=== PATIENT | female | born 1970 | race Caucasian/White ===

== ENCOUNTER 2021-01-21 12:30 | Outpatient (RCR) | payer OTHER, SELFPAY ==
--- NOTE | 2020-12-22 09:34 | PTOPEVAL ---
INITIAL PHYSICAL THERAPY EVALUATION and PLAN OF CARE Thank you for referring Radha Tejada to [facility].? Radha is scheduled to be seen for physical therapy? 2x/week for 4 weeks. Please review, sign, date and return this plan of care CAROLYN. I agree with and certify that the following plan of care is medically necessary. Referring Physician Date Admitting Provider: Attending Provider: Iam Herron MD Referring Provider: *PT Outpatient Evaluation Start: 12/22/20 08:05 Freq: Status: Active Protocol: Document 12/22/20 08:00 CLAUDIA (Rec: 12/22/20 09:34 CLAUDIA [id number]) Therapy Assessment Status Assessment Status Assessment Status Evaluation Outpatient Past Medical History Past Medical History Source of Past Medical History Patient Musculoskeletal History Hx Arthritis Yes Hx Orthopedic Surgery Yes: R knee meniscal repair HEENT History Hx Tonsillectomy Yes Other History Hx Other Surgeries Yes: skin removal surgery Evaluation Information Problem Diagnosis bilat knee DJD, R knee flexion contracture Onset long standing - gradually worsening Subjective Information Gets cortisone shots Query Text:As Reported By Patient/ periodically - last one was 5/ Family - did well next 2 days - 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 Now - knee is back to how it was prior to most recent injection - but feels a little unstable . Pain now on R is more laterally - along thigh into lower leg. L knee is also arthritic -but not as bad as the R. Ortho MD wants her to keep moving, etc - to try and delay TKA surgery. Knee discomfort interferes with sleeping. In mornings takes awhile to get moving. Does stretching and bend knees prior to getting up. 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 Pain is worse in sitting Diagnostic Tests X-Rays For This Problem Yes Previous Treatments Previous Treatments For This Problem receives injections into both k
--- NOTE | 2021-01-21 15:05 | PTOPEVAL ---
PHYSICAL THERAPY DISCHARGE SUMMARY Thank you for referring Radha Tejada to [facility].? Radha has been seen x 8 visits in PT. Most goals have been met and her R patella appears in a more neutral position - but she was having increase in discomfort this date. She is to continue with HEP and use ice massage or ice packs to help with R knee pain that is retropatellar rather than lateral patellar. I agree with and certify that the following plan of care is medically necessary. Referring Physician Date Admitting Provider: Attending Provider: Iam Herron MD Referring Provider: Therapy Assessment Status Assessment Status Assessment Status Discharge Evaluation Information Problem Diagnosis bilat knee DJD, R knee flexion contracture Subjective Information Radha states that R knee Query Text:As Reported By Patient/ pain has returned - some Family posteriorly as well as under patella. Was able to reposition R knee with morning class - but still had R patellar twinges. Pain Assessment Self Report Pain Assessment Left Knee(s) Reported Pain Level 0 Lowest Pain Intensity 0 Greatest Pain Intensity 2 Right Knee(s) Reported Pain Level 4 Lowest Pain Intensity 1 Greatest Pain Intensity 6 Lower Extremity Range of Motion Knee Range of Motion Right Knee Extension Range of Motion - Active 10 Query Text: Left Knee Extension Range of Motion - Active 12 Query Text: Lower Extremity Muscle Strength Testing Hip Strength Bilateral Hip Strength Comments R abduction 4+/5 Muscle Length Testing Muscle Length Testing Claudia's Test Hip Muscle Length (R) WFL,(R) Mild Tightness,(L) Mild Tightness Palpation Assessment Palpation Palpation R knee good patellar mobility - medial/laterally - mild decrease with cranial/caudal glides R patella appears in more neutral position today Gait Assessment Gait Pattern Assessment Other Gait Observations mild lateral trunk lean still present with gait pattern PT Clinical Summary Clinical Summary Protocol: PTEVCODE PT Clinical Summary LE functional scale - 54/80 Radha overall progressed well in PT - she gained R hip abductor strength, R ITB flexibility, was achieving decrease in R knee pain, and did increase with functional abilities. No change with
== END 2021-03-01 10:10 | disposition home or self-care (01) ==
LOC: ANHHIPT 12:30
PROVIDERS: PCP Emergency Medicine; Visit Provider Orthopaedic Surgery
DX: M17.0 Bilateral primary osteoarthritis of knee (principal); M24.561 Contracture, right knee
CPT/HCPCS: 97110; 97140; 97161

== ENCOUNTER → 2021-10-17 08:13 | Outpatient (CLI) | payer BC, SELFPAY ==
--- NOTE | ~2021-10-17 | US_ITS ---
EXAMINATION: US pelvic complete w TV DATE: 10/17/2021 08:41 INDICATION: Ovarian cyst. Thickened endometrium. Comparison:No prior studies for comparison. TECHNIQUE: Multiple transabdominal and endovaginal sonographic images of the pelvis performed. FINDINGS: The uterus measures 9.6 x 5.4 x 5.7 cm. The endometrial complex measures 1.4 cm.. The right ovary measures 2.8 x 1.3 x 2.2 cm and the left ovary measures 2.2 x 1.5 x 2.7 cm. There ar e small follicles in each ovary. Normal doppler signal in both ovaries. There is trace free fluid in the pelvis. There are no abnormal masses seen on either side. IMPRESSION: 1. Mildly thickened endometrium measuring 1.4 cm. Reviewed, dictated and finalized at location B.
== END ==
PROVIDERS: PCP Physician Assistant; Visit Provider Physician Assistant
DX: N83.201 Unspecified ovarian cyst, right side (principal); N83.202 Unspecified ovarian cyst, left side; R93.89 Abnormal findings on diagnostic imaging of other specified body structures
CPT/HCPCS: 76830; 76856

== ENCOUNTER 2023-06-01 13:49 | Outpatient (CLI) | payer BC, SELFPAY ==
--- NOTE | 2023-06-01 14:34 | ECG_ITS ---
Measurements Intervals [place] Rate: 68 P: 30 WV: 127 QRS: -9 QRSD: 102 T: 17 QT: 399 QTc: 425 Interpretive Statements BASELINE ARTIFACT RESULTS IN POOR QUALITY ECG SINUS RHYTHM GROSSLY NORMAL ECG NO PREVIOUS ECG AVAILABLE FOR COMPARISON Electronically Signed On 06-01-2023 15:16:25 CDT by Alfonzo Ivy M.D.
[2023-06-01 15:07] LABS: Basophils Percent Auto 0.5 % (0.2-1.2); Eosinophils Absolute Auto 0.2 K/mm3 (0-0.3); Eosinophils Percent Auto 2.9 % (0-4.4); Hematocrit 46.6 % (37.0-47.0); Hemoglobin 15.3 g/dL (12.0-15.0); Immature Granulocyte Absolute 0.05 K/mm3 (0.00-0.031); Immature Granulocyte Percent A 0.7 % (0-0.5); Lymphocytes Absolute Auto 1.84 K/mm3 (0.9-3.2); Lymphocytes Percent Auto 25.1 % (18.3-44.2); Mean Corpuscular HGB Conc 32.8 g/dl (32-36); Mean Corpuscular Hemoglobin 28.4 pg (26-34); Mean Corpuscular Volume 86.5 fl (80-100); Mean Platelet Volume 9.4 fl (7.4-10.4); Monocytes Absolute Auto 0.6 K/mm3 (0.1-0.6); Monocytes Percent Auto 7.7 % (2.6-8.5); Neutrophils Absolute Auto 4.6 K/mm3 (1.3-6.7); Neutrophils Percent Auto 63.1 % (45.5-73.1); Platelet Count Result 248 k/mm3 (150-375); Red Blood Count 5.39 M/mm3 (4.2-5.4); Red Cell Distribution Width 13.7 % (11.5-14.5); White Blood Count 7.3 K/mm3 (4.5-10.0)
[2023-06-01 15:09] LABS: Albumin Level 4.5 g/dL (3.5-5.1); Anion Gap 6 mmol/L (8-16); Blood Urea Nitrogen 18 mg/dL (7-17); Carbon Dioxide 32 mmol/L (22-30); Chloride 99 mmol/L (98-107); Estimated Glomerular Filt Rate > 60; Glucose 89 mg/dL (65-110); Potassium 4.3 mmol/L (3.4-5.0); Sodium 137 mmol/L (137-145)
[2023-06-01 15:11] LABS: INR 0.9; Partial Thromboplastin Time 26.8 SECONDS (22.3-36.8); Prothrombin Time 12.6 Seconds (11.1-14.7)
[2023-06-01 15:18] LABS: Appearance Urine Clear (Clear); Bacteria Urine None Seen /hpf; Bilirubin Urine Negative (Negative); Blood Urine Negative (Negative); Color Urine Yellow (Yellow); Glucose Urine UA Negative (Negative); Ketones Urine Negative (Negative); Leukocyte Esterase Ur 1+ LEU/UL (Negative); Need Manual Microscopic Reviewed; Nitrate Urine Negative (Negative); Non Pathogenic Casts 0-2; Protein Urine Negative (Negative); RBC Urine 0-2 /hpf (0-2); Specific Grav Ur 1.009 (1.001-1.035); Squamous Epithelial Cell Urine None seen /hpf (Few); Urobilinogen Urine 0.2 mg/dL (<2.0); WBC Urine 0-5 /hpf
[2023-06-01 15:28] LABS: Add Urine Microscopic? YES
[2023-06-01 16:11] LABS: Urine Cotinine NEGATIVE
[2023-06-01 16:51] LABS: Hemoglobin A1C 4.9 % (<5.7)
== END 2023-06-01 13:50 | disposition home or self-care (01) ==
LOC: ANHSURGERY 13:55
PROVIDERS: PCP Nurse Practitioner Family; Visit Provider Orthopaedic Surgery
DX: M17.11 Unilateral primary osteoarthritis, right knee (principal); Z01.818 Encounter for other preprocedural examination
CPT/HCPCS: 80048; 80307; 81001; 82040; 83036; 85025; 85610; 85730; 86850; 86900; 86901; 87081; 93005

== ENCOUNTER 2023-06-13 02:33 | Day surgery (SDC) | payer BC, SELFPAY ==
[2023-06-01 14:00] VITALS: BMI 35.9
--- NOTE | 2023-06-01 14:21 | PC.NURSE ---
Report to the Outpatient Waiting Room, entrance under the green pavilion located off [facility], at time _0830 on date __06/13/23 . Planned Procedure Time: _1030 . Time changes happen often and if your time is changed the preop area will call you the afternoon before. - You and your visitor will be asked to self-screen and do not enter if you have any COVID symptoms. - A mask is optional within the hospital at this time. Patients may have clear liquids (water, carbonated beverages, clear teas, apple juice) until 3 hours prior to surgery with a maximum of 20 ounces. - No food from midnight until time of surgery - Infants may have breast milk until 4 hours before surgery, infant formula 6 hours prior to surgery. - Children will be allowed to drink immediately following surgery. If applicable, please bring a bottle or sippy cup to assist with drinking. Juice, water, soda, and popsicles are readily available. For infants on formula, please bring formula the day of surgery. Pacifiers are allowed. Take the following medications with a SIP of water the morning of surgery: ___BUPROPION DO NOT STOP ANY OF YOUR OTHER PRESCRIPTION MEDICATIONS PRIOR TO SURGERY ?EXCEPT THE FOLLOWING Medications to discontinue per physician ALL VITAMINS AND SUPPLEMENTS 3 DAYS PRE OP.LAST DOSE 06/09/23. MELOXICAM AND IBUPROFEN PER DR DE PAZ Please no make-up, nail vietnamese, hairspray, perfume, deodorant, or body powder the day of surgery. No jewelry (including any body piercings) or valuables the day of surgery, leave them at home. Please take a shower or bath the night before, or the morning of, surgery with an antibacterial soap. Wear comfortable, loose fitting clothing. Children are encouraged to wear pajamas. - Jewelry must be removed prior to entering the operating room. Rings and piercings that are not removed may be cut off. - The hospital will not accept responsibility for valuables. - Please leave all valuables, including medications, at home the day of surgery. If you are going home after surgery, a licensed fire truck driver must drive you home. - NO public transportation without another adult if you receive anesthesia. - We recommend that an adult stay with you for 24 hours following discharge. - We also recommend that you do not drive, make important decision, drink alcoholic beverages, or take any drugs that were not prescribed by your health care provider for at least 24 hours after your discharge time. For Pediatric surgeries, we recommend two adults accompany the child home. Follow any additional instructions given to you from your surgeon. If you or anyone in your household have experienced Covid symptoms in the past week, please notify your surgeon or the nurse liaison at the phone number below for possible testing. VERBAL AND WRITTEN instructions given to __PATIENT and asked if any additional questions and then verbalized understanding. Patient advised to call surgeon office or pre surgery nurse liaison [phone] if any additional questions.
[2023-06-01 14:36] VITALS: BP 139/89; PULSE 70; RESP 18; TEMP 36.8; O2SAT 99
[2023-06-13] VITALS (19 sets, daily range): BP systolic 128–182; BP diastolic 75–124; PULSE 56–104; RESP 12–17; TEMP 35.8–36.5; O2SAT 94–100
--- NOTE | ~2023-06-13 | XR_ITS ---
EXAMINATION: [id number] DATE: 06/13/2023 15:22 INDICATION: Postoperative evaluation following right total knee arthroplasty. TECHNIQUE: Anteroposterior and lateral views of the right knee were obtained. COMPARISON: None. FINDINGS: Right total knee arthroplasty without patellar resurfacing appears well seated and in near anatomic a lignment. No fractures identified. Anterior skin anjana and expected postoperative subcutaneous and intra-articular gas. IMPRESSION: 1. Right total knee arthroplasty, negative for postoperative purposes. Reviewed, dictated and finalized at location A. N OILSEED OR PASTURE GROWER
--- NOTE | 2023-06-13 08:12 | WPDHPUPDATE1 ---
History and Physical Update Update Date/Time: 06/13/23 08:12 History and Physical has been reviewed, including an updated exam of the patient. There are NO changes in the patient's condition. Risks, benefits, and alternatives have been discussed and questions answered. Patient agrees to proceed with procedure.
--- NOTE | 2023-06-13 10:53 | WPDANESEPPF ---
Anes - Initial Pre Proc Eval Procedure: Operation Date: 06/13/23 11:45 Proposed Procedures p Right Total Knee Arthroplasty, Cortisone Injection Left Knee - Iam Herron MD Date/Time: 06/13/23 10:53 Surgeon: Iam Herron MD Pre Op Diagnosis: Bilateral Knee's djd Patient Data Age: 52 Gender: F Height: 1.75 m Weight: 110.4 kg Last Vital Signs Temp 36.8 C 06/01/23 14:36 Pulse 70 06/01/23 14:36 Resp 18 06/01/23 14:36 BP 139/89 06/01/23 14:36 Pulse Ox 99 06/01/23 14:36 O2 Del Method Room Air 06/01/23 14:36 Allergies Allergy/AdvReac Type Severity Reaction Status Date / Time meperidine Allergy Severe Vomiting Verified 06/13/23 10:27 Home Medications Medication Instructions Recorded Confirmed Type meloxicam 15 mg tablet 15 mg PO DAILY pain/inflammation 04/20/23 06/13/23 Rx 30 days #30 tabs tramadol 50 mg tablet 50 mg PO PRN PRN Pain 04/26/23 06/13/23 History chlorhexidine gluconate 4 % 1 applic topical DAILY #237 mL 05/30/23 06/13/23 Rx topical liquid (Hibiclens) acetaminophen 500 mg capsule 500 - 1,000 mg PO Q6H PRN Pain 06/01/23 06/13/23 History bupropion HCl 300 mg 24 hr tablet, 300 mg PO DAILY 06/01/23 06/13/23 History extended release cholecalciferol (vitamin D3) 50 50 mcg PO DAILY 06/01/23 06/13/23 History mcg (2,000 unit) tablet ferrous sulfate 325 mg (65 mg 65 mg PO DAILY 06/01/23 06/13/23 History iron) capsule,extended release ibuprofen 800 mg tablet 800 mg PO Q6H PRN Pain 06/01/23 06/13/23 History linaclotide 72 mcg capsule 72 mcg PO DAILY 06/01/23 06/13/23 History (Linzess) Patient hx anesthesia problems: post op nausea/vomiting Family hx anesthesia problems: none Results Review: All pre-operative results and documents have been reviewed as part of the pre-operative evaluation. [facility] Past Medical History Medical History IT band syndrome Knee joint effusion Left knee DJD Right knee DJD Tricompartment degenerative joint disease of knee Family History Family History Mother Hypertension Father Family history of diabetes mellitus in first degree relative Other Family history of arthritis Family history of lung cancer Family history of pancreatic cancer No family history of diabetes mellitus Social History Social History Smoking status: Never smoker Additional smoking assessment comments: DENIES ANY FORM OF TOBACCO USE Alcohol intake: current Alcohol use details: 2 per month Living arrangements: with family Spiritual care concerns: No Anes - Eval Final PreProcedure Day of Procedure 06/13/23 10:53 Patient weight: obese Heart: regular rate and rhythm Lungs: clear to auscultation Airway: Mallampati scale class II Neurological: alert and oriented Last oral intake: >/= 8 hours ASA classification: III Emergent: no Anesthetic plan: proceed Anesthesia type and monitoring: general LMA and standard monitoring Results Review: All pre-operative results and documents have been reviewed as part of the pre-operative evaluation. Informed Consent: The patient's anesthetic plan and its attendant risks and benefits were discussed with the patient/family/POA. Questions were solicited and answers provided to the satisfaction of the patient/family/POA.
[2023-06-13] MEDS: ACETAMINOPHEN 500 MG TABLET 1000 MG PO ×2 (10:57→16:18)
[2023-06-13] MEDS: LACTATED RINGERS 1,000 ML 30 ML IV CONT ×2 (11:26→15:02)
[2023-06-13] MEDS: TRANEXAMIC ACID 1,000MG/ISO100 1,000 MG/100 ML BAG 200 MG IVPB (11:36)
[2023-06-13] MEDS: SCOPOLAMINE 1.5 MG PATCH TRANSDERM (11:36)
--- NOTE | 2023-06-13 12:16 | WPDANESPNB ---
Anes - Peripheral Nerve Block Date/Time: 06/13/23 12:16 I have discussed with the patient/family/POA the placement of a peripheral nerve block for post-operative pain management, including associated risks, benefits, complications, and side effects. Alternative methods of post-operative analgesia were detailed. Questions were solicited and answers provided to the satisfaction of the patient/family/POA. Time-Out: A pre-procedural Time-Out was completed immediately before starting the procedure and confirmed: Patient Identification, Site, Procedure, Patient Position and the Availability of Requisite Equipment. Clinical Indications: Acute post-operative pain management requested by the operative surgeon. Nerve Block Insertion Note Anes-nerve block: adductor canal right Patient position: supine Skin prep: chlorhexidine Needle: 22 gauge, stimulating, insulated echogenic needle. Needle length: 80 mm Technique: ultrasound Technique comment: mid2mg [id number] Injectate: bupivacaine 0.5% with epi 5 mcg/ml (30ml no epi) and dexamethasone (mg) (4) Observations: tolerated well Complications: none Procedure start time:: 1203 Procedure end time:: 1210
[2023-06-13] MEDS: ceFAZolin 2 GM/D5W 50 ML 2 GM/50 ML BAG IVPB ×2 (12:20→20:51)
[2023-06-13] MEDS: BUPivacaine HCL 0.5% 10 ML AMP 2 ML INFILTRATE (13:28)
[2023-06-13] MEDS: methylPREDNISolone ACETATE 80 MG/ML VIAL IM (13:29)
[2023-06-13] MEDS: TRANEXAMIC ACID 1,000 MG/10 ML AMPUL 1000 MG IV PUSH (14:32)
--- NOTE | 2023-06-13 15:07 | P.OP_ITS ---
Procedure Note - Detailed Date of Procedure 06/13/23 Pre-op Diagnosis Bilateral Knee djd Post-op Diagnosis Same Procedure Performed RIGHT TKA, LEFT KNEE INJECTION Surgeon Iam Herron MD Anesthesia General Description of Procedure THE RIGHT KNEE WAS PREPPED AND DRAPED IN THE STERILE FASHION. THERE WAS A 20 DEGREE FLEXION CONTRACTURE. A MIDLINE SKIN INCISION WAS MADE. A MEDIAL PARAPATELLAR ARTHROTOMY WAS MADE. THE PATELLA WAS EVERTED. THERE WAS TRICOMPARTMENT DJD. THERE WAS MINIMAL PATELLA DJD. AN INTRAMEDULLARY IVETH WAS PLACED IN THE FEMUR. A DISTAL FEMORAL CUT WAS MADE IN 5 DEGREES OF VALGUS REMOVING APPROXIMATELY 11 MM OF BONE FROM THE DISTAL FEMUR. THE FEMUR WAS SIZED TO 62.5. A 62.5 FEMORAL CUTTING BLOCK WAS PLACED IN 3 DEGREES OF EXTERNAL ROTATION AND IN ALIGNMENT WITH COCO'S LINE AND THE TRANSEPICONDYLAR AXIS. ANTERIOR POSTERIOR AND CHAMFER CUTS WERE MADE. THE CUTS WERE EXCELLENT. NEXT AN INTRAMEDULLARY CUTTING GUIDE WAS PLACED IN THE TIBIA. A TRANS TIBIAL CUT WAS MADE ALONG THE LONG AXIS OF THE TIBIA. APPROXIMATELY 10 MM OF BONE WAS REMOVED FROM THE HIGH SIDE OF THE TIBIA. THE TIBIA WAS THEN PLANED TO A SMOOTH SURFACE. POSTERIOR FEMORAL OSTEOPHYTES WERE REMOVED FROM THE FEMORAL CONDYLES. A 75 TIBIAL TRIAL WAS PLACED IN ALIGNMENT WITH THE 1/3 MEDIAL ASPECT OF THE TIBIAL TUBERCLE. THEN A 62.5 FEMORAL TRIAL COMPONENT WAS PLACED. BOTH HAD EXCELLENT FITS. EVENTUALLY A 13 MM POLYETHYLENE TRIAL COMPONENT WAS PLACED. THE KNEE WAS TAKEN THROUGH A RANGE OF MOTION. THE KNEE CAME OUT TO FULL EXTENSION. THERE WAS NO ABNORMAL TILT TO THE PATELLA. THERE WAS GOOD A/P AND VARUS/VALGUS STABILITY. THERE WAS NO EXCESSIVE ROLL BACK WITH FLEXION. THE TRIAL COMPONENTS WERE REMOVED. THEN A 62.5 FEMORAL COMPONENT AND 75 TIBIAL COMPONENT WITH A 13 POLYETHYLENE COMPONENT WERE CEMENTED INTO PLACE. ONCE THE CEMENT WAS HARD THE KNEE WAS TAKEN THROUGH A ROM AGAIN AND FOUND TO BE STABLE WITH NO PATELLA TILT NO EXCESSIVE ROLL BACK WITH FLEXION AND GOOD STABILITY WITH COMPLETE AND FULL EXTENSION. THE KNEE WAS IRRIGATED WITH STERILE BETADINE AND WATER FOR ABOUT 3 M INUTES. THE BLEEDERS WERE CAUTERIZED. THE ARTHROTOMY WAS REPAIRED WITH NUMBER 1 VICRYL. THE SUB CUTANEOUS LAYER WITH 2-0 VICRYL AND THE SKIN WITH CRISTAL. THE WOUND WAS WASHED AND A STERILE DRESSING WAS APPLIED. NEXT THE LEFT KNEE WAS INJECTED WITH 1 CC DEPO MEDROL 80 MG AND 2 CC MARCAINE 0.5%. PATIENT WAS EXTUBATED. Estimated Blood Loss -150.0 Pathology None sent Complications No immediate complications Condition Stable Disposition PACU
[2023-06-13] MEDS: fentaNYL CITRATE INJ (*CRX) 100 MCG/2 ML VIAL 25 MCG IV PUSH ×7 (15:08→15:54)
[2023-06-13] MEDS: diazePAM INJ (*CRX) 10 MG/2 ML SYRINGE 5 MG IV PUSH (15:18)
[2023-06-13] MEDS: KETOROLAC 30 MG/ML VIAL (*BKC) IV PUSH (15:18)
[2023-06-13] MEDS: LABETALOL HCL INJ 100 MG/20 ML VIAL IV PUSH ×2 (15:40→15:53)
[2023-06-13] MEDS: LACTATED RINGERS 1,000 ML 100 ML IV CONT (16:00)
[2023-06-13] MEDS: HYDROmorphone HCL INJ (*CRX) 1 MG/ML SYR IV PUSH ×3 (16:03→17:05)
[2023-06-13] MEDS: diphenhydrAMINE HCl INJ 50 MG/ML VIAL 25 MG IV PUSH (16:03)
--- NOTE | 2023-06-13 17:15 | PC.NURSE ---
This patient, Radha Tejada, was admitted to [facility] Surg Room 332-01. Patient/family oriented to hospital policies and general routines including ID bracelet, bed and alarms, visiting hours, pain management, procedures, bathroom and other care routines, personal items, smoking policy, room service/diet, and visiting hours. Information on how to activate the Rapid Response Team has been discussed. Patient/Family are encouraged to report perceived risks to care and to ask questions if they do not understand what they are told or what they should do.
[2023-06-13] MEDS: SENNA/DOCUSATE SODIUM TABLET 2 TAB PO (17:45)
[2023-06-13] MEDS: SODIUM CHLORIDE 0.9% IV 1,000 ML 125 ML IV CONT (17:46)
[2023-06-13] MEDS: KETOROLAC 15 MG/ML VIAL (*BKC) IV PUSH ×2 (17:47→23:01)
[2023-06-13] MEDS: ONDANSETRON INJ 4 MG/2 ML VIAL IV PUSH (19:25)
[2023-06-13] MEDS: FAMOTIDINE 20 MG TABLET PO (20:50)
[2023-06-13] MEDS: ASPIRIN 325 MG ENTERIC TABLET PO (20:50)
[2023-06-13] MEDS: oxyCODONE/ACETAMINOPHEN (*CRX) 5-325 MG TABLET 1 TABLET PO (20:59)
--- NOTE | 2023-06-13 21:15 | PC.NURSE ---
pt states takes Linzess at night changed order to 2100
[2023-06-14] VITALS: BP 150/98; PULSE 71; RESP 18; TEMP 35.9; O2SAT 99
[2023-06-14] MEDS: oxyCODONE/ACETAMINOPHEN (*CRX) 5-325 MG TABLET 1 TABLET PO ×6 (00:32→16:28)
[2023-06-14] MEDS: ceFAZolin 2 GM/D5W 50 ML 2 GM/50 ML BAG IVPB ×2 (03:47→12:28)
[2023-06-14 04:00] VITALS: BP 133/81; PULSE 64; RESP 18; TEMP 35.8; O2SAT 100
[2023-06-14] MEDS: KETOROLAC 15 MG/ML VIAL (*BKC) IV PUSH ×3 (05:04→17:22)
[2023-06-14 05:54] LABS: Basophils Percent Auto 0.2 % (0.2-1.2); Hemoglobin 13.2 g/dL (12.0-15.0); Immature Granulocyte Absolute 0.12 K/mm3 (0.00-0.031); Immature Granulocyte Percent A 0.7 % (0-0.5); Lymphocytes Absolute Auto 0.66 K/mm3 (0.9-3.2); Lymphocytes Percent Auto 3.9 % (18.3-44.2); Mean Corpuscular HGB Conc 32.2 g/dl (32-36); Mean Corpuscular Hemoglobin 28.4 pg (26-34); Mean Corpuscular Volume 88.4 fl (80-100); Mean Platelet Volume 9.4 fl (7.4-10.4); Monocytes Percent Auto 5.7 % (2.6-8.5); Neutrophils Absolute Auto 15.3 K/mm3 (1.3-6.7); Neutrophils Percent Auto 89.5 % (45.5-73.1); Platelet Count Result 238 k/mm3 (150-375); Red Blood Count 4.64 M/mm3 (4.2-5.4); Red Cell Distribution Width 13.2 % (11.5-14.5); White Blood Count 17.1 K/mm3 (4.5-10.0)
--- NOTE | 2023-06-14 05:56 | PC.NURSE ---
patient ambulating this shift to the bathroom x1 assist with walker.
[2023-06-14 06:01] LABS: Anion Gap 7 mmol/L (8-16); Blood Urea Nitrogen 9 mg/dL (7-17); Calcium 9.4 mg/dL (8.4-10.2); Carbon Dioxide 27 mmol/L (22-30); Chloride 103 mmol/L (98-107); Estimated CRCL calculation 119 ml/min; Estimated Glomerular Filt Rate > 60; Glucose 131 mg/dL (65-110); Potassium 4.1 mmol/L (3.4-5.0); Sodium 137 mmol/L (137-145)
[2023-06-14 08:00] VITALS: BP 103/66; PULSE 54; RESP 16; TEMP 35.9; O2SAT 99
[2023-06-14] MEDS: buPROPion HCL XL (24 HR) 150 MG TABCR 300 MG PO (08:07)
[2023-06-14] MEDS: CHOLECALCIFEROL 1,000 UNITS TABLET 2000 UNITS PO (08:08)
[2023-06-14] MEDS: SENNA/DOCUSATE SODIUM TABLET 2 TAB PO ×2 (08:08→16:27)
[2023-06-14] MEDS: FAMOTIDINE 20 MG TABLET PO (08:08)
[2023-06-14] MEDS: polyethylene glycoL 3350 17 GM POWD.PACK PO (08:08)
[2023-06-14] MEDS: ASPIRIN 325 MG ENTERIC TABLET PO (08:08)
[2023-06-14] MEDS: FERROUS SULFATE 325 MG TABLET DR BY MOUTH (08:08)
--- NOTE | 2023-06-14 09:17 | WPDANESPN ---
Anes - Prog Note Post-Op Date/Time: 06/14/23 09:17 Cardiovascular status: normal Respiratory status: normal Airway patency: baseline Mental status: baseline Post-Op hydration status: normal Vital Signs: Last Vital Signs Temp 35.9 C L 06/14/23 08:00 Pulse 54 L 06/14/23 08:00 Resp 16 06/14/23 08:00 BP 103/66 06/14/23 08:00 Pulse Ox 99 06/14/23 08:00 O2 Del Method Room Air 06/14/23 08:03 O2 Flow Rate 6 06/13/23 15:02 Pain Score (VAS): 11/13 I/O: Intake & Output 06/13/23 06/14/23 06/14/23 23:59 07:59 15:59 Intake Total 50 2090 Output Total 625 Balance -575 0 Laboratory Tests 06/14/23 05:22 06/14/23 05:22 06/14/23 05:22 WBC 17.1 H RBC 4.64 Hgb 13.2 Hct 41.0 MCV 88.4 MCH 28.4 MCHC 32.2 RDW 13.2 Plt Count 238 MPV 9.4 Immature Gran % (Auto) 0.7 H Neut % (Auto) 89.5 H Lymph % (Auto) 3.9 L [place] % (Auto) 5.7 Eos % (Auto) 0.0 Baso % (Auto) 0.2 Lymph # (Auto) 0.66 L [place] # (Auto) 1.0 H Eos # (Auto) 0.0 Baso # (Auto) 0.0 Abs Immat Gran (auto) 0.12 H Absolute Neuts (auto) 15.3 H Absolute Nucleated RBC 0.0 Nucleated RBC % 0.0 Sodium 137 Potassium 4.1 Chloride 103 Carbon Dioxide 27 Anion Gap 7 L BUN 9 D Creatinine 0.60 L Estim Creat Clear Calc 119 Estimated GFR > 60 Glucose 131 H Calcium 9.4 Post-procedural complaints: none Patient Feedback: Patient satisfied with anesthetic care.
--- NOTE | 2023-06-14 09:19 | PM.PNORT ---
Progress Note: A&P Assessment and Plan (1) S/P total knee arthroplasty: Qualifiers: Laterality: right Qualified Code(s): Z96.651 - Presence of right artificial knee joint Code(s): Z96.659 - Presence of unspecified artificial knee joint Status: Acute Assessment and Plan: POD #1 : Right TKA Continue PT/OT. WBAT. Walker. HIGH FALL RISK. Continue pain control. Ice Knee. Protect skin. DVT prophylaxis with Aspirin. SCDs. Incentive Spirometry Use reviewed. Monitor Dressing. Change prior to discharge. Bowel Regimen. Dispo: Home with Home Health pending progress with PT/OT Plan Reviewed postoperative pain control, assessment, radiographs and labs with attending MD, Dr. Herron. Subjective Subjective Date/Time Seen: 06/14/23 09:19 Post Op day: 1 Interval history: POD #1: Right TKA Patient doing well. Significant improvement in pain control from yesterday. Pain well controlled today. No new concerns. Hopeful for discharge home today. Review of Systems Review of Systems: All systems reviewed & are unremarkable except as noted in HPI and below Constitutional: Constitutional: Denies fever(s) and Denies headache(s) ENT: Denies headache(s) Cardiovascular: Cardiovascular: Denies chest pain, Denies diaphoresis, Denies palpitations and Denies dyspnea Respiratory: Respiratory: Denies dyspnea Gastrointestinal: Gastrointestinal: Denies abdominal pain, Denies constipation, Denies nausea and Denies vomiting Genitourinary: Genitourinary: Reports nocturia and Denies dysuria Musculoskeletal: Musculoskeletal: Reports arthralgias (Right Knee ) and Reports joint swelling (Right Knee ) Neurologic: Denies headache(s) Endocrine: Endocrine: Denies palpitations Exam Const: General: comfortable and no acute distress Resp: Effort & Inspection: normal respiratory effort Cardio: Rate: regular rate Rhythm: regular rhythm GI: GI Palp: Yes Soft to palpation, No Tenderness to palpation present (GI) and No Guarding due to palpation present (GI) Skin: General skin exam: wounds noted Wounds: wounds noted Other: Incision c/d/i. No surrounding redness/warmth. No hematoma. Mild ecchymosis. No wound dehiscence Neuro: Cognition (Neuro): normal cognition Other: NV intact aside from block. Moves toes. Sensation intact to light touch. +ankle dorsiflexion/plantarflexion. Extrem: Right lower extremity: normal to inspection, knee Details: tenderness (diffuse, mild ) Location: of the patella, swelling (diffuse, consistent with surgical intervention ), abnormal ROM Details: pain with active ROM during, pain with passive ROM during and with range as follows (limited due to recent surgical intervention ); able to extend lower leg actively and ecchymosis (mild ), lower leg (Negative Matt's Sign ) Details: normal to inspection; no erythema and no tenderness, ankle (+ankle dorsiflexion/plantarflexion ) Details: normal to inspection, no edema and normal ROM; no tenderness, no swelling and no ecchymosis and foot Details: normal capillary refill, normal to inspection, vascular exam Details: dorsalis pedis pulse present and motor-sensory exam Details: light-touch normal; no tenderness Left lower extremity: normal to inspection Psych: Mental Status: mental status grossly normal Objective Data Vital Signs Vital Signs: Vital Signs - 24 hr 06/13/23 11:29 06/13/23 11:35 06/13/23 15:02 Temperature 36.4 C 36.5 C Pulse Rate 67 104 H Respiratory Rate 16 13 Blood Pressure 148/103 H 140/86 160/113 H Pulse Oximetry 100 100 Oxygen Delivery Room Air Simple Face Mask Oxygen Flow Rate 6 06/13/23 15:15 06/13/23 15:40 06/13/23 15:30 Temperature Pulse Rate 77 86 84 Respiratory Rate 17 16 Blood Pressure 182/121 H 153/120 H Pulse Oximetry 100 96 Oxygen Delivery Room Air Room Air Oxygen Flow Rate 06/13/23 15:53 06/13/23 15:45 06/13/23 16:15 Temperature Pulse Rate 78 80 67 Respirat
[2023-06-14 12:00] VITALS: BP 109/61; PULSE 61; RESP 16; TEMP 36.4; O2SAT 98
--- NOTE | 2023-06-14 12:56 | PM.DS ---
DS: Admitting Diagnosis Discharge Date 06/14/2023 Admitting Diagnosis Right Knee DJD DS: Discharge Diagnosis Discharge Diagnosis (1) S/P total knee arthroplasty: Qualifiers: Laterality: right Qualified Code(s): Z96.651 - Presence of right artificial knee joint Code(s): Z96.659 - Presence of unspecified artificial knee joint Status: Acute Assessment and Plan: POD #1 : Right TKA Continue PT/OT. WBAT. Walker. HIGH FALL RISK. Continue pain control. Ice Knee. Protect skin. DVT prophylaxis with Aspirin. SCDs. Incentive Spirometry Use reviewed. Monitor Dressing. Change prior to discharge. Bowel Regimen. Dispo: Home with Home Health pending progress with PT/OT Plan Reviewed postoperative pain control, assessment, radiographs and labs with attending MD, Dr. Herron. DS: Summary Hospital Course Reason for hospitalization: Right TKA Hospital Course: 52 year old female admitted s/p Right TKA for postoperative medical management, pain control and mobilization with PT/OT. Patient progressed well with PT/OT. Pain difficulties on POD #0 but improved by POD #1. Vitals remained stable throughout. The patient has been cleared to be discharged home with home health at this time. All discharge care instructions reviewed at depth. New medications reviewed. Follow up planned for 3 weeks in the outpatient orthopedic clinic with Dr. Herron. Dr. Herron in agreement with above discharge plans. Status at Discharge Functional status at discharge: uses cane/walker Overall status at discharge: patient is progressing back to baseline Time Spent with Patient Time attestation: Total time spent providing and/or coordinating discharge services: Exam Const: General: comfortable and no acute distress Resp: Effort & Inspection: normal respiratory effort Cardio: Rate: regular rate Rhythm: regular rhythm Skin: General skin exam: wounds noted Wounds: wounds noted Other: Incision c/d/i. No surrounding redness/warmth. No hematoma. Mild ecchymosis. No wound dehiscence Neuro: Cognition (Neuro): normal cognition Other: NV intact aside from block. Moves toes. Sensation intact to light touch. +ankle dorsiflexion/plantarflexion. Extrem: Right lower extremity: normal to inspection, knee Details: tenderness (diffuse, mild ) Location: of the patella, swelling (diffuse, consistent with surgical intervention ), abnormal ROM Details: pain with active ROM during, pain with passive ROM during and with range as follows (limited due to recent surgical intervention ); able to extend lower leg actively and ecchymosis (mild ), lower leg (Negative Matt's Sign ) Details: normal to inspection; no erythema and no tenderness, ankle (+ankle dorsiflexion/plantarflexion ) Details: normal to inspection, no edema and normal ROM; no tenderness, no swelling and no ecchymosis and foot Details: normal capillary refill, normal to inspection, vascular exam Details: dorsalis pedis pulse present and motor-sensory exam Details: light-touch normal; no tenderness Left lower extremity: normal to inspection Psych: Mental Status: mental status grossly normal DS: Data Data Completed and Pending Labs on day of discharge: Labs from last 24 hours 06/14/23 05:22 WBC 17.1 H RBC 4.64 Hgb 13.2 Hct 41.0 MCV 88.4 MCH 28.4 MCHC 32.2 RDW 13.2 Plt Count 238 MPV 9.4 Immature Gran % (Auto) 0.7 H Neut % (Auto) 89.5 H Lymph % (Auto) 3.9 L [place] % (Auto) 5.7 Eos % (Auto) 0.0 Baso % (Auto) 0.2 Lymph # (Auto) 0.66 L [place] # (Auto) 1.0 H Eos # (Auto) 0.0 Baso # (Auto) 0.0 Abs Immat Gran (auto) 0.12 H Absolute Neuts (auto) 15.3 H Absolute Nucleated RBC 0.0 Nucleated RBC % 0.0 Sodium 137 Potassium 4.1 Chloride 103 Carbon Dioxide 27 Anion Gap 7 L BUN 9 D Creatinine 0.60 L Estim Creat Clear Calc 119 Estimated GFR > 60 Glucose 131 H Calcium 9.4 Discharge Plan Discharge Patient Disposition: Ho
[2023-06-14 16:00] VITALS: BP 120/66; PULSE 62; RESP 16; TEMP 36.6; O2SAT 100
== END 2023-06-14 17:45 | disposition home health service (06) ==
LOC: ANHSURGERY 10:03 → ANH3MEDSUR 17:11
PROVIDERS: PCP Nurse Practitioner Family; Visit Provider Orthopaedic Surgery
PROC: (CPT 27447; principal; 2023-06-13 11:45)
DX: M17.0 Bilateral primary osteoarthritis of knee (principal); G89.18 Other acute postprocedural pain; Z79.891 Long term (current) use of opiate analgesic; Z80.1 Family history of malignant neoplasm of trachea, bronchus and lung; Z80.0 Family history of malignant neoplasm of digestive organs; E66.9 Obesity, unspecified; Z68.31 Body mass index [BMI] 31.0-31.9, adult
CPT/HCPCS: 64447; 27447; 20610; 36415; 73560; 80048; 85025; 97110; 97116; 97161; 97165; 97530; A9270; C1713; C1776; J0171; J0690; J1040; J1100; J1170; J1200; J1885; J2250; J2270; J2405; J2704; J2795; J3010; J3360; J3370; J7030; J7120

== ENCOUNTER 2023-09-03 15:30 | Outpatient (RCR) | payer BC, SELFPAY ==
--- NOTE | 2023-07-06 16:42 | PTOPEVAL1 ---
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 Had to stop doing this because of knee issues. right knee was so painful had to take off work 2 weeks before surgery. Still taking pain medication at night, oxycodone. Reports right leg is restless . Can't get brain to shut off, so won't get sleep if does not take medication. Left knee cortisone shot during right knee surgery . 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 Would also like to be able to sit on the floor with the kids. Reported Pain Level Pain Score 1: Self Report Assessment PT Clinical Summary Pt presents status post right knee joint replacement. Tristan's good functional gait without assistive device, mildly decreased range right knee compared to left (left OA) flexion, increased edema, tight gastrocs and quads. Pt tristan's functional strength however given her previous highly active lifestyle her strength is less than her norm. Pt will greatly benefit from physical therapy to address deficits and improve function to return to PLOF Plan of Care Interventions Electrical Stimulation,Hot Pack/Cold Pack,Manual Therapy,Neuro Re-education,Patient/Caregiver Educati,Therapeutic Activities,Therapeutic Exercise PT Services Indicated Yes Treatment Frequency and 1-2x weekly x 8 weeks Duration These treatments will address the objective and functional deficits as defined above. The patient will be advanced safely and appropriately in order for the patient to progress towards his/her prior level of function. Additional exercises will be introduced and as well as a comprehensive home exercise program upon discharge, if needed, ?to ensure carryover of functional gains achieved in the clinic. This treatment plan has been reviewed and agreement upon by the patient.
--- NOTE | 2023-07-06 16:42 | OPREHPOC ---
Outpatient Therapy Plan of Care This is a Multidisciplinary Plan of Care that may contain components documented by all disciplines (PT, OT, and ST.) PT Goal 1 Goal Pt will be independent in HEP Pt will verbalize understanding of diagnosis and prognosis Target Visit 8 PT Problem 2 PT Problem #2 Impaired Range of Motion PT Goal 1 Goal Pt will demo equal AROM of effected knee to unaffected knee Target Visit 12 PT Goal 2 Goal Pt will demo only mild tightness to right gastroc Target Visit 16 PT Problem 3 PT Problem #3 Pain PT Goal 1 Goal Pt will report greatest pain level at 3/10 or less to improve ADLs Target Visit 12 PT Goal 2 Goal Pt will report resolution of pain to return to PLOF Target Visit 16 PT Problem 4 PT Problem #4 Impaired Strength PT Goal 1 Goal Pt will demo appropriate squat and lunge kinematics to prepare for return to high level fitness regiment. Target Visit 16
--- NOTE | 2023-08-03 16:22 | PTOPPROG ---
Assessment and note entered by Nini Shrestha, PT Assessment Status Progress Diagnosis right total knee replacement 06/13/2023 Therapy Condition Weakness, pain in right knee, stiffness right knee Subjective Information Pt reports feeling an painless grinding in the right knee with walking. Seems to be consistent but not painful. Self perceived improvement: 50% is functional in activities but has not returned to high level recreational fitness Assessment PT Clinical Summary Pt has been attending therapy consistently post total knee replacement approx 7.5 weeks ago. Her pain has reduced, her range has improved, her gait has improved, she feels more stable. 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 She has yet to return to her PLOF, continues to have deficits in flexion, cont to demo raised keloid type scaring and decreased scar mobility. Thus patient would benefit from physical therapy to address deficits and continue improvement. Plan of Care Interventions Electrical Stimulation,Hot Pack/Cold Pack,Manual Therapy,Neuro Re-education,Patient/Caregiver Educati,Therapeutic Activities,Therapeutic Exercise PT Services Indicated Yes Treatment Frequency and 1-2x weekly x 4 weeks Duration These treatments will address the objective and functional deficits as defined above. The patient will be advanced safely and appropriately in order for the patient to progress towards his/her prior level of function. Additional exercises will be introduced and as well as a comprehensive home exercise program upon discharge, if needed, ?to ensure carryover of functional gains achieved in the clinic. This treatment plan has been reviewed and agreement upon by the patient.
--- NOTE | 2023-09-04 16:06 | PTOPDC ---
Assessment and note entered by Nini Shrestha, PT Assessment Status Discharge Diagnosis right total knee replacement 06/13/2023 Subjective Information Pt reports has been able to return to work. Only issues is no feeling, scar is bothersome, and can hear knee cap Today is going to try to go for a fitness walk Reports feeling 90% improved overall Reported Pain Level Pain Score 0: Self Report Assessment PT Clinical Summary Pt has attended therapy consistently for right total knee replacement. She has demonstrated in her therapy sessions high level activities including low level plyometrics and floor recovery related to work activities. Pt cont to have scarring keloid textures that is slowly improving and has been provided information to continue soft tissue reorganization and has met her goals. Thus patient is being discharged from services due to all goals being met.
== END 2023-09-12 13:40 | disposition home or self-care (01) ==
LOC: ANHHIPT 15:30
PROVIDERS: PCP Nurse Practitioner Family; Visit Provider Orthopaedic Surgery
DX: Z47.1 Aftercare following joint replacement surgery (principal); Z96.651 Presence of right artificial knee joint
CPT/HCPCS: 97014; 97016; 97110; 97112; 97140; 97161; 97530; 97750; G0283